=== PATIENT | male | born 1960 | race Asian ===

== ENCOUNTER 2019-01-23 17:10 | Emergency (ER) | payer SELFPAY ==
[~2019-01-23] VITALS: Ht 170.2 cm; Wt 67.6 kg
[2019-01-23 17:21] VITALS: Ht 170.2 cm; Wt 67.6 kg
[2019-01-23 19:08] LABS: BASOPHIL % 0.3 % (0-2); PLATELET COUNT 224 x10^3mcL (130-400); RED CELL DISTRIBUTION WIDTH 13.1 % (11.5-14.5)
[2019-01-23 19:11] LABS: CALCIUM 11.4 mg/dL (8.5-10.1); CARBON DIOXIDE 32.8 mmol/L (21-32); CREATININE SERUM 1.5 mg/dL (0.7-1.3); POTASSIUM SERUM 3.9 mmol/L (3.5-5.1)
[2019-01-23 19:15] LABS: ALBUMIN 4.3 g/dL (3.4-5.0); BILIRUBIN TOTAL 0.76 mg/dL (0.20-1.00)
[2019-01-23 19:16] LABS: TOTAL PROTEIN, SERUM 8.8 g/dL (6.4-8.2)
[2019-01-23 20:02] LABS: microscopic required? YES; urine erythrocyte 1+ (NEGATIVE)
[2019-01-24 00:41] VITALS: BP 106/75
== END 2019-01-24 00:41 | disposition home or self-care (01) ==
LOC: ED 17:10
PROVIDERS: Emergency Medicine
DX: K85.90 Acute pancreatitis without necrosis or infection, unspecified (principal); I10 Essential (primary) hypertension; Z88.5 Allergy status to narcotic agent
CPT/HCPCS: J1885; J2405; J3010; J3490; Q0092